=== PATIENT | female | born 1940 | race Caucasian/White ===

== ENCOUNTER → 2017-03-09 | Outpatient (CLI) | payer MEDICARE, BC ==
[~2017-03-09] MED LIST: ASPIRIN EC81 MG PO; BISACODYL5 MG PO; FEMARA DPS2.5 MG PO; LOPRESSOR DPS50 MG PO; MILK OF MAGNESI10 ML PO; PRILOSEC DPS20 MG PO; SENOKOT S1 TAB PO; SYNTHROID112 MCG PO; TYLENOL DPS325 MG PO; ULTRAM DPS50 MG PO; XALATAN2.5 ML OU; XARELTO10 MG PO
== END | disposition home or self-care (01) ==
LOC: NUE 09:30
DX: E11.9 Type 2 diabetes mellitus without complications (principal); Z71.3 Dietary counseling and surveillance
CPT/HCPCS: 258